=== PATIENT | male | born 2000 | race African-American/Black ===

== ENCOUNTER 2022-12-09 22:15 | Emergency (ER) | payer MEDICAID ==
[~2022-12-09] VITALS: Ht 175.3 cm; Wt 82.0 kg
[2022-12-09] MEDS ORDERED: TETANUS, DIPHTHERIA, PERTUSSIS VAC/PF 0.5ML (>10YR OLD) IM ONE (22:30)
[2022-12-09] MEDS ORDERED: MORPHINE SULFATE 4 MG/ML CPJ (NOT FOR IM USE) IV ONE (22:30)
[2022-12-09] MEDS ORDERED: CEFTRIAXONE 2GM/50ML (ADDEASE) 50 ML IV ONE (22:30)
[2022-12-09] MEDS ORDERED: VANCOMYCIN 1G PREMIX 200 ML IV SCH (22:30)
[2022-12-09] MEDS ORDERED: HYDROMORPHONE HCL/PF 2MG/ML CPJ IV ONE (23:30)
[2022-12-10] MEDS ORDERED: HYDROMORPHONE HCL/PF 2MG/ML CPJ IV ONE ×2 (01:15→05:15)
[2022-12-10] MEDS ORDERED: HYDROMORPHONE HCL/PF 2MG/ML CPJ IV NR (01:30)
[2022-12-10 01:53] LABS: HEMATOCRIT. 38.3 % (42.0-52.0); HEMOGLOBIN. 13.1 g/dL (14.0-18.0); MEAN CORPUSCULAR HEMOGLOBIN 33.3 pg (28.0-32.0); MEAN CORPUSCULAR VOLUME 97.6 fL (80.0-94.0); RED BLOOD CELL COUNT 3.93 mill/uL (4.7-6.1); RED CELL DISTRIBUTION WIDTH 13.1 % (11.6-14.6)
[2022-12-10 02:01] LABS: CHLORIDE 105 mEq/L (98-107)
[2022-12-10] MEDS ORDERED: MIDAZOLAM HCL 2 MG/2 ML VIAL IM ONE (02:15)
[2022-12-10] MEDS ORDERED: PROPOFOL 200MG/20ML VIAL IV ONE ×2 (02:30→04:30)
[2022-12-10 02:39] LABS: INR 1.1; PROTHROMBIN TIME 11.6 sec (9.6-11.0)
[2022-12-10] MEDS ORDERED: FENTANYL CITRATE/PF 50MCG/ML 2ML VIAL IV NR (04:15)
[2022-12-10] MEDS ORDERED: FENTANYL CITRATE/PF 50MCG/ML 2ML VIAL IV ONE (04:30)
[2022-12-10 05:27] LABS: MEAN PLATELET VOLUME 8.1 fl (7.4-10.4); PLATELET 265 x1000/uL (130-400); PLATELET ESTIMATE NORMAL
[2022-12-10] MEDS ORDERED: ONDANSETRON HCL 4MG/2ML INJ IV STA (08:12)
[2022-12-10] MEDS ORDERED: MORPHINE SULFATE 4 MG/ML CPJ (NOT FOR IM USE) IV STA (08:12)
[2022-12-10 08:29] VITALS: BP 154/91
== END 2022-12-10 08:44 | disposition short-term general hospital (02) ==
LOC: ER 22:15
DX: S82.891B Other fracture of right lower leg, initial encounter for open fracture type I or II (principal); X58.XXXA Exposure to other specified factors, initial encounter; Y93.89 Activity, other specified; Y92.89 Other specified places as the place of occurrence of the external cause; Y99.8 Other external cause status
CPT/HCPCS: 27788; 36415; 73560; 73590; 73610; 80053; 85025; 85610; 86850; 86900; 86901; 90471; 90715; 96365; 96368; 96375; 96376; 99152; 99285; J0696; J1170; J2270; J2405; J2704; J3010; J3370; Z7610